=== PATIENT | female | born 1970 | race Caucasian/White ===

== ENCOUNTER 2017-08-09 10:21 | Emergency (ER) | payer OTHER ==
[~2017-08-09] VITALS: Ht 165.1 cm; Wt 93.0 kg
[2017-08-09] MEDS ORDERED: SYNTHROID50 MCG (10:34)
[2017-08-09] MEDS ORDERED: ZOCOR20 MG (10:34)
== END 2017-08-09 16:21 | disposition home or self-care (01) ==
LOC: ER 10:21
DX: K52.9 Noninfective gastroenteritis and colitis, unspecified (principal)

== ENCOUNTER 2024-03-26 07:30 | Inpatient (IN) | payer OTHER ==
[~2024-03-26] VITALS: Ht 165.1 cm; Wt 95.3 kg
[~2024-03-26 07:30] MED LIST: SYNTHROID50 MCG; ZOCOR20 MG
[2024-03-26 08:56] VITALS: BP 150/85
[2024-03-26] MEDS ORDERED: CRESTOR40 MG PO (09:01)
[2024-03-26] MEDS ORDERED: SYNTHROID150 MCG PO (09:05)
[2024-03-26] MEDS ORDERED: SYNTHROID137 MCG PO (09:05)
[2024-03-26 09:09] LABS: URINE APPEARANCE Clear; URINE BILIRRUBIN Negative (NEGATIVE); URINE BLOOD Moderate; URINE COLOR Yellow; URINE GLUCOSE Negative (NEGATIVE); URINE KETONE Negative (NEGATIVE); URINE LEUKOCYTE Negative; URINE NITRATE Negative; URINE PROTEIN Negative (NEGATIVE); URINE UROBILINOGEN 0.2 E.U./dl
[2024-03-26 09:10] LABS: URINE BACTERIA 56.6 uL (0.0-1933); URINE EPITHELIAL CELLS 6.3 uL (0.0-38.8); URINE RBC 6.5 uL (0.0-20.8)
[2024-03-26 09:26] LABS: INR 0.96; PARTIAL THROMBOPLASTIN TIME 28.4 SECONDS (22.0-34.0); PROTHROMBIN TIME 10.5 SECONDS (9.0-11.5)
[2024-03-26 09:28] LABS: HEMATOCRIT 38.4 % (36.0-45.00); HEMOGLOBIN 13.2 g/dL (12.0-15.00); MEAN CELL VOLUME 85.6 fL (80.00-100.00); MEAN CORPUSCULAR HEMOGLOBIN 29.4 pg (27.00-32.0); MEAN CORPUSCULAR HGB CONC 34.3 g/dl (32.0-36.0); PLATELET COUNT 198 K/uL (150-450); RED BLOOD COUNT 4.48 M/uL (4.00-6.00); RED CELL DISTRIBUTION WIDTH 13.4 % (11.5-14.5)
[2024-03-26 09:41] LABS: URINE WBC 1.5 uL (0.0-23.2)
[2024-03-26 11:50] LABS: ALBUMIN 3.9 gm/dL (3.4-5.0); BILIRUBIN TOTAL 0.59 mg/dL (0.3-1.2); CREATININE SERUM 0.7 mg/dL (0.55-1.02); GFR 86.87; GLOBULINA 3.4 G/DL (2.4-3.5); POTASSIUM 4.53 mEq/L (3.5-5.1); TOTAL PROTEIN 7.3 gm/dL (6.4-8.2)
[2024-04-02] MEDS ORDERED: POVIDONE-IODINE 118 ML BOTT TOP ONE (11:30)
[2024-04-02] MEDS ORDERED: CEFAZOLIN SODIUM 1,000 MG VIAL IV ONE (11:30)
[2024-04-02] MEDS ORDERED: SURGIFLO APPLICATOR 1 EACH APPL TOP ONE (16:45)
[2024-04-02] MEDS ORDERED: HEMOSTATIC MATRIX 1 KIT KIT TOP ONE (16:45)
[2024-04-02] MEDS ORDERED: ONDANSETRON HCL 2 MG/ML VIAL IV PRN (18:30)
[2024-04-02] MEDS ORDERED: MORPHINE SULFATE 4 MG/ML CARTRIDGE IV PRN (18:30)
[2024-04-02] MEDS ORDERED: MORPHINE SULFATE 4 MG/ML VIAL IV PRN (18:30)
[2024-04-02] MEDS ORDERED: OxyCODONE HCL/APAP UD (PERCOCET) PO PRN (22:15)
[2024-04-02] MEDS ORDERED: KETOROLAC TROMETHAMINE 30 MG VIAL IV SCH (22:15)
[2024-04-02 22:41] VITALS: BP 150/85
[2024-04-03] VITALS: BP 128/77
[2024-04-03 08:26] VITALS: BP 112/66
[2024-04-03 09:06] LABS: HEMATOCRIT 34.2 % (36.0-45.00); HEMOGLOBIN 11.8 g/dL (12.0-15.00); MEAN CELL VOLUME 85.2 fL (80.00-100.00); MEAN CORPUSCULAR HEMOGLOBIN 29.4 pg (27.00-32.0); MEAN CORPUSCULAR HGB CONC 34.5 g/dl (32.0-36.0); PLATELET COUNT 202 K/uL (150-450); RED BLOOD COUNT 4.01 M/uL (4.00-6.00); RED CELL DISTRIBUTION WIDTH 13.7 % (11.5-14.5)
[2024-04-03 13:09] VITALS: BP 140/66
[2024-04-03 17:03] VITALS: BP 126/76
[2024-04-03] MEDS ORDERED: OxyCODONE HCL/APAP UD (PERCOCET) PO PRN (18:07)
[2024-04-03] MEDS ORDERED: DOCUSATE SODIUM 100MG CAP PO ONE (18:15)
== END 2024-04-03 21:12 | disposition home or self-care (01) | DRG 743 ==
LOC: O/R 04-02 05:34 → SURH 04-02 07:30 → OB/GYN 04-02 19:06
PROVIDERS: ADMIT Obstetrics & Gynecology; ATTEND Obstetrics & Gynecology
PROC: 0UT74ZZ Resection of Bilateral Fallopian Tubes, Percutaneous Endoscopic Approach (ICD-10-PCS; 2024-04-02)
PROC: 0TJB8ZZ Inspection of Bladder, Via Natural or Artificial Opening Endoscopic (ICD-10-PCS; 2024-04-02)
PROC: 0UT94ZZ Resection of Uterus, Percutaneous Endoscopic Approach (ICD-10-PCS; principal; 2024-04-02 16:00)
DX: D25.2 Subserosal leiomyoma of uterus (principal); N84.0 Polyp of corpus uteri; Z20.822 Contact with and (suspected) exposure to COVID-19